=== PATIENT | female | born 1975 | race Caucasian/White ===

== ENCOUNTER → 2017-04-28 | Outpatient (CLI) | payer OTHER ==
--- NOTE | 2017-04-28 09:05 | MM ---
Reason for exam: screening (asymptomatic). Baseline mammogram. History: Patient is nulliparous. Physical Findings: Nurse did not find any significant physical abnormalities on exam. MG 3D Screening Mammo W/Cad Bilateral CC and MLO view(s) were taken. The breast tissue is heterogeneously dense. This may lower the sensitivity of mammography. Finding: There are typically benign vascular, round calcifications in both breasts. There is no discrete abnormality. These results were verbally communicated with the patient and result sheet given to the patient on 04/28/17. ASSESSMENT: Benign, BI-RAD 2 RECOMMENDATION: Routine screening mammogram of both breasts in 1 year.
== END ==
LOC: RADMAMWWP 08:05
PROVIDERS: ATTEND Family Medicine
DX: Z12.31 Encounter for screening mammogram for malignant neoplasm of breast (principal)
CPT/HCPCS: 77063; G0202

== ENCOUNTER → 2018-04-28 | Outpatient (CLI) | payer BC | END | disposition home or self-care (01) | LOC: LABWHC1 08:20 | PROVIDERS: ATTEND Physician Assistant | DX: E89.2 Postprocedural hypoparathyroidism (principal) | CPT/HCPCS: 36415; 82310; 83970 ==

== ENCOUNTER → 2018-09-23 | Outpatient (CLI) | payer BC ==
--- NOTE | 2018-09-26 11:20 | MM ---
Reason for exam: screening (asymptomatic). Last mammogram was performed 1 year and 5 months ago. History: Patient is nulliparous. Physical Findings: A clinical breast exam by your physician is recommended on an annual basis and results should be correlated with mammographic findings. MG Screening Mammo w CAD Bilateral CC and MLO view(s) were taken. Prior study comparison: April 28, 2017, bilateral MG 3d screening mammo w/cad. The breast tissue is heterogeneously dense. This may lower the sensitivity of mammography. There are benign appearing round vascular calcifications bilaterally. There is no discrete abnormality. ASSESSMENT: Benign, BI-RAD 2 RECOMMENDATION: Routine screening mammogram of both breasts in 1 year.
== END | disposition home or self-care (01) ==
LOC: RADMAMWWP 14:44
PROVIDERS: ATTEND Family Medicine
DX: Z12.31 Encounter for screening mammogram for malignant neoplasm of breast (principal)
CPT/HCPCS: 77067

== ENCOUNTER → 2019-04-07 | Outpatient (CLI) | payer BC ==
[2019-04-07 07:36] LABS: Basophils % (A) 1 %; Eosinophils # (A) 0.1 k/uL (0-0.7); Eosinophils % (A) 2 %; HCT 29.9 % (34.0-46.0); HGB 10.1 gm/dL (11.4-16.0); Lymphocytes # (A) 2.3 k/uL (1.0-4.8); Lymphocytes % (A) 37 %; MCH 29.5 pg (25.0-35.0); MCHC 33.7 g/dL (31.0-37.0); MCV 87.5 fL (80.0-100.0); Mean Platelet Volume 7.7; Monocytes # (A) 0.3 k/uL (0-1.0); Monocytes % (A) 5 %; Neutrophils # (A) 3.4 k/uL (1.3-7.7); Neutrophils % (A) 55 %; Platelet Count 187 k/uL (150-450); RBC 3.41 m/uL (3.80-5.40); RDW 13.8 % (11.5-15.5); WBC 6.2 k/uL (3.8-10.6)
[2019-04-07 07:44] LABS: Appearance,Urine Clear (Clear); Bilirubin,Urine Negative (Negative); Blood,Urine Negative (Negative); Color,Urine Colorless; Glucose,Urine (UA) Negative (Negative); Ketones,Urine Negative (Negative); Leukocyte Esterase,Urine Negative (Negative); Nitrite,Urine Negative (Negative); PH, Urine 6.5 (5.0-8.0); Protein,Urine Negative (Negative); Specific Gravity,Urine 1.003 (1.001-1.035); Urobilinogen,Urine <2.0 mg/dL (<2.0)
[2019-04-07 11:54] LABS: African American GFR (CKD) 53.6 (60.0-200.0); Albumin 3.9 g/dL (3.80-4.90); Anion Gap 4.9 mmol/L (4.00-12.00); BUN/Creat Ratio 19.29 Ratio (12.00-20.00); Calcium 8.6 mg/dL (8.7-10.3); Carbon Dioxide 29.1 mmol/L (21.6-31.8); Phosphorus 3.9 mg/dL (2.4-5.1); Potassium 4.1 mmol/L (3.5-5.5)
== END | disposition home or self-care (01) ==
LOC: LABWHC1 07:02
PROVIDERS: ATTEND Internal Medicine
DX: I15.1 Hypertension secondary to other renal disorders (principal); N28.89 Other specified disorders of kidney and ureter; D50.8 Other iron deficiency anemias; R30.0 Dysuria; Z87.440 Personal history of urinary (tract) infections; Z94.0 Kidney transplant status
CPT/HCPCS: 36415; 80069; 81003; 85025; 87086

== ENCOUNTER → 2019-11-14 | Outpatient (CLI) | payer BC ==
--- NOTE | 2019-11-15 11:59 | MM ---
Reason for exam: screening (asymptomatic). Last mammogram was performed 1 year and 2 months ago. History: Patient is nulliparous. Physical Findings: A clinical breast exam by your physician is recommended on an annual basis and results should be correlated with mammographic findings. MG Screening Mammo w CAD Bilateral CC and MLO view(s) were taken. Prior study comparison: September 23, 2018, bilateral MG screening mammo w CAD. April 28, 2017, bilateral MG 3d screening mammo w/cad. The breast tissue is heterogeneously dense. This may lower the sensitivity of mammography. Benign appearing bilateral calcifications. No suspicious abnormality. No significant changes when compared with prior studies. ASSESSMENT: Benign, BI-RAD 2 RECOMMENDATION: Routine screening mammogram of both breasts in 1 year.
== END | disposition home or self-care (01) ==
LOC: RADMAMWWP 06:47
PROVIDERS: ATTEND Family Medicine
DX: Z12.31 Encounter for screening mammogram for malignant neoplasm of breast (principal)
CPT/HCPCS: 77067

== ENCOUNTER → 2020-03-22 | Outpatient (CLI) | payer BC ==
[2020-03-22 08:43] LABS: ALT 10 U/L (4-34); AST 20 U/L (14-36); Albumin 3.8 g/dL (3.5-5.0); Albumin/Globulin Ratio 1.7; Alkaline Phosphatase 41 U/L (38-126); Bilirubin,Unconjugated 0.5 mg/dL (0.0-1.1); Cholesterol 182 mg/dL (<200); Globulin 2.3 g/dL; HDL Cholesterol 38 mg/dL (40-60); LDL Cholesterol,Calculated 98 mg/dL (0-99); Magnesium 1.7 mg/dL (1.6-2.3); Total Bilirubin 0.5 mg/dL (0.2-1.3); Total Protein 6.1 g/dL (6.3-8.2); Triglycerides 230 mg/dL (<150)
[2020-03-22 16:13] LABS: Ferritin 320.7 ng/mL (10.0-291.0)
[2020-03-22 19:03] LABS: Hemoglobin A1C 5.9 % (4.0-6.0)
[2020-03-25 17:30] LABS: % Iron Saturation 15.99 (12.00-45.00)
== END | disposition home or self-care (01) ==
LOC: LABWHC1 07:28
PROVIDERS: ATTEND Internal Medicine
DX: E78.5 Hyperlipidemia, unspecified (principal); D50.8 Other iron deficiency anemias; E21.3 Hyperparathyroidism, unspecified; E55.9 Vitamin D deficiency, unspecified; Z94.0 Kidney transplant status
CPT/HCPCS: 36415; 80061; 80069; 80076; 80197; 82306; 82310; 82728; 83036; 83540; 83550; 83735; 83970; 85025

== ENCOUNTER → 2020-07-24 | Outpatient (CLI) | payer BC ==
[2020-07-24 10:04] LABS: Protein/Creatinine Ratio,Urine 0.216
== END | disposition home or self-care (01) ==
LOC: LABWHC1 07:20
PROVIDERS: ATTEND Internal Medicine
DX: D50.8 Other iron deficiency anemias (principal); E21.3 Hyperparathyroidism, unspecified; E78.5 Hyperlipidemia, unspecified
CPT/HCPCS: 82570; 84156

== ENCOUNTER → 2020-08-01 | Outpatient (CLI) | payer BC ==
[2020-08-01 08:12] LABS: Basophils % (A) 0 %; Eosinophils # (A) 0.1 k/uL (0-0.7); Eosinophils % (A) 1 %; HCT 32.5 % (34.0-46.0); HGB 10.6 gm/dL (11.4-16.0); Lymphocytes # (A) 1.7 k/uL (1.0-4.8); Lymphocytes % (A) 27 %; MCH 28.9 pg (25.0-35.0); MCHC 32.7 g/dL (31.0-37.0); MCV 88.3 fL (80.0-100.0); Mean Platelet Volume 7.3; Monocytes # (A) 0.3 k/uL (0-1.0); Monocytes % (A) 4 %; Neutrophils # (A) 4.2 k/uL (1.3-7.7); Neutrophils % (A) 65 %; Platelet Count 210 k/uL (150-450); RBC 3.68 m/uL (3.80-5.40); WBC 6.4 k/uL (3.8-10.6)
[2020-08-01 08:23] LABS: Appearance,Urine Clear (Clear); Bilirubin,Urine Negative (Negative); Blood,Urine Negative (Negative); Color,Urine Colorless; Glucose,Urine (UA) Negative (Negative); Ketones,Urine Negative (Negative); Leukocyte Esterase,Urine Negative (Negative); Nitrite,Urine Negative (Negative); PH, Urine 5.5 (5.0-8.0); Protein,Urine Negative (Negative); Specific Gravity,Urine 1.007 (1.001-1.035); Urobilinogen,Urine <2.0 mg/dL (<2.0)
[2020-08-01 09:54] LABS: Protein/Creatinine Ratio,Urine 0.249
[2020-08-01 11:41] LABS: African American GFR (CKD) 39.3 (60.0-200.0); Albumin 4.3 g/dL (3.80-4.90); BUN/Creat Ratio 31.11 Ratio (12.00-20.00); Calcium 9.1 mg/dL (8.7-10.3); Non-African American GFR(CKD) 33.9 (60.0-200.0); Phosphorus 4.1 mg/dL (2.4-5.1); Potassium 4.8 mmol/L (3.5-5.5)
== END | disposition home or self-care (01) ==
LOC: LABWHC1 07:28
PROVIDERS: ATTEND Internal Medicine
DX: Z94.0 Kidney transplant status (principal)
CPT/HCPCS: 36415; 80069; 81003; 82570; 84156; 85025

== ENCOUNTER → 2020-09-30 | Outpatient (CLI) | payer BC | END | disposition home or self-care (01) | LOC: LABWHC1 07:14 → EDSTATUS 07:36 | PROVIDERS: ATTEND Internal Medicine | DX: Z94.0 Kidney transplant status (principal); R80.9 Proteinuria, unspecified | CPT/HCPCS: 84166 ==

== ENCOUNTER → 2020-11-08 | Outpatient (CLI) | payer BC | END | disposition home or self-care (01) | LOC: LABWHC1 07:34 | PROVIDERS: ATTEND Internal Medicine | DX: R80.9 Proteinuria, unspecified (principal); Z94.0 Kidney transplant status | CPT/HCPCS: 36415 ==

== ENCOUNTER → 2021-01-24 | Outpatient (CLI) | payer BC ==
--- NOTE | 2021-01-27 14:33 | MM ---
Reason for exam: screening (asymptomatic). Last mammogram was performed 1 year and 2 months ago. History: Patient is nulliparous. Physical Findings: A clinical breast exam by your physician is recommended on an annual basis and results should be correlated with mammographic findings. MG Screening Mammo w CAD Bilateral CC and MLO view(s) were taken. Prior study comparison: November 14, 2019, bilateral MG screening mammo w CAD. September 23, 2018, bilateral MG screening mammo w CAD. The breast tissue is heterogeneously dense. This may lower the sensitivity of mammography. There are benign appearing vascular calcifications bilaterally. There is no discrete abnormality. ASSESSMENT: Benign, BI-RAD 2 RECOMMENDATION: Routine screening mammogram of both breasts in 1 year.
== END | disposition home or self-care (01) ==
LOC: RADMAMWWP 07:24
PROVIDERS: ATTEND Family Medicine
DX: Z12.31 Encounter for screening mammogram for malignant neoplasm of breast (principal)
CPT/HCPCS: 77067

== ENCOUNTER → 2021-01-29 | Outpatient (CLI) | payer BC ==
[2021-01-29 15:51] LABS: Basophils % (A) 0 %; Eosinophils % (A) 0 %; HCT 29.7 % (34.0-46.0); HGB 9.8 gm/dL (11.4-16.0); Lymphocytes # (A) 1.2 k/uL (1.0-4.8); Lymphocytes % (A) 14 %; MCH 28.8 pg (25.0-35.0); MCV 87.3 fL (80.0-100.0); Mean Platelet Volume 7.9; Monocytes # (A) 0.3 k/uL (0-1.0); Monocytes % (A) 4 %; Neutrophils # (A) 7.1 k/uL (1.3-7.7); Neutrophils % (A) 81 %; Platelet Count 198 k/uL (150-450); RDW 13.3 % (11.5-15.5); WBC 8.7 k/uL (3.8-10.6)
== END | disposition home or self-care (01) ==
LOC: LABPAT 14:22
PROVIDERS: ATTEND Obstetrics & Gynecology
DX: Z01.812 Encounter for preprocedural laboratory examination (principal); N84.0 Polyp of corpus uteri; N92.0 Excessive and frequent menstruation with regular cycle; I10 Essential (primary) hypertension; R00.1 Bradycardia, unspecified
CPT/HCPCS: 36415; 85025; 93005

== ENCOUNTER 2021-02-18 08:48 | Day surgery (SDC) | payer BC ==
[2021-02-13 12:56] VITALS: BMI 33.9
[~2021-02-18 08:48] MED LIST: DEXAMETHASONE SOD PHOSPHATE 4 MG/ML 1 ML VIAL IV ONE; HYDROmorphone 0.5 MG/0.5 ML SYRINGE IVP PRN; LACTATED RINGERS 1,000 ML IV SCH; MIDAZOLAM 2 MG/2 ML VIAL IV PRN; ONDANSETRON 4 MG/2 ML VIAL IVP ONE; Pre Op ABX Message 1 EACH MISC MISCELLANE ONE; SCOPOLAMINE 1.5MG/72HR PATCH TRANSDERM ONE
[2021-02-18] MEDS ORDERED: SODIUM CHLORIDE 0.9% 1,000 ML IV ONE (09:51)
[2021-02-18 09:54] LABS: Glucose,Whole Blood 93 mg/dL (75-99)
[2021-02-18] MEDS ORDERED: KETOROLAC 15 MG/ML 1 ML VIAL ONE (10:50)
[2021-02-18] MEDS ORDERED: LIDOCAINE 1% INJ 10MG/ML (20 ML MDV) ONE (10:50)
[2021-02-18] MEDS ORDERED: PROPOFOL 10 MG/ML 20 ML VIAL IV ONE (10:50)
[2021-02-18] MEDS ORDERED: MIDAZOLAM 2 MG/2 ML VIAL ONE (10:50)
[2021-02-18] MEDS ORDERED: fentaNYL (PF) 50 MCG/ML 2 ML AMP ONE (10:50)
--- NOTE | 2021-02-18 11:26 | P.OP ---
Date of Procedure: 02/18/21 Preoperative Diagnosis: Menorrhagia, hypermenorrhea, endometrial polyps Postoperative Diagnosis: Same Procedure(s) Performed: Hysteroscopy, D&C, polypectomies Anesthesia: SHAWNA Surgeon: Gwen Newman Estimated Blood Loss (ml): 20 IV fluids (ml): 100 Urine output (ml): 200 Pathology: other (Endometrial curettings and polyps) Condition: stable Disposition: PACU Operative Findings: Multiple endometrial polyps and shaggy proliferative type endometrium Description of Procedure: Patient is brought to the operating suite where a general anesthetic is administered without difficulty. She's placed in the dorsal lithotomy position. The appropriate timeout is performed to assure proper patient and procedural identification. HCG is negative. The cervix, vagina, perineal bodies are all prepped and draped in usual sterile fashion. Examination under anesthesia reveals an anteverted uterus with negative adnexa bilaterally. Uterus is slightly enlarged clinically. The bladder is drained for approximate 200 mL of clear yellow urine. Weighted speculum was placed into the vagina and the anterior lip of the cervix is gently grasped with a double-tooth tenaculum. Uterus sounds to a depth of 13 cm in the anteverted position. Hanks dilators are used to dilate the cervix sequentially. Hysteroscope was then placed and the cavity is infused with sterile saline. The tissue appears quite shaggy and redundant with small endometrial polyps noted. No septa or defects. Hysteroscope was removed. Sharp medium curette is used and the cavity is thoroughly curettaged in all quadrants. Polyp forceps are used and some residual tissue is procured and sent with the specimen. Hysteroscope was once again placed and the cavity is noted to be clear. Instrumentation is removed from the vagina. All sponge needle and enhancement counts are correct. Patient is brought back to recovery room in good condition with a pulse of 66, blood pressure 85/40, 100% O2 saturation. She is given 15 mg of Toradol prior to leaving the operative suite.
[2021-02-18 11:27] VITALS: TEMP 97.1
[2021-02-18 11:36] VITALS: RESP 16
[2021-02-18 12:16] VITALS: BP 106/75; PULSE 70
== END 2021-02-18 12:46 | disposition home or self-care (01) ==
LOC: OR 08:48
PROVIDERS: ATTEND Obstetrics & Gynecology
DX: N84.0 Polyp of corpus uteri (principal); N92.0 Excessive and frequent menstruation with regular cycle; D64.9 Anemia, unspecified; I10 Essential (primary) hypertension; Z86.73 Personal history of transient ischemic attack (TIA), and cerebral infarction without residual deficits; N28.9 Disorder of kidney and ureter, unspecified; Z94.0 Kidney transplant status; E89.2 Postprocedural hypoparathyroidism; Z98.890 Other specified postprocedural states; Z82.49 Family history of ischemic heart disease and other diseases of the circulatory system; Z80.0 Family history of malignant neoplasm of digestive organs; Z83.79 Family history of other diseases of the digestive system; Z79.899 Other long term (current) drug therapy; Z91.041 Radiographic dye allergy status
CPT/HCPCS: 81025; 88305; 58558; J2250; J2405; J2001; J3010; J1885; J2704

== ENCOUNTER → 2021-03-20 | Outpatient (CLI) | payer BC ==
[2021-03-20 07:59] LABS: Appearance,Urine Clear (Clear); Bilirubin,Urine Negative (Negative); Blood,Urine Negative (Negative); Color,Urine Light Yellow; Glucose,Urine (UA) Negative (Negative); Ketones,Urine Negative (Negative); Leukocyte Esterase,Urine Negative (Negative); Nitrite,Urine Negative (Negative); PH, Urine 5.5 (5.0-8.0); Protein,Urine Negative (Negative); Specific Gravity,Urine 1.009 (1.001-1.035); Urobilinogen,Urine <2.0 mg/dL (<2.0)
[2021-03-20 09:35] LABS: Creatinine,Urine Random 69.8 mg/dL; Protein/Creatinine Ratio,Urine 0.143
[2021-03-20 11:39] LABS: Basophils # (A) 0.05 X 10*3/uL (0.00-0.10); Basophils % (A) 0.7 %; Eosinophils # (A) 0.13 X 10*3/uL (0.04-0.35); Eosinophils % (A) 1.7 %; HCT 31.8 % (37.2-46.3); HGB 9.9 g/dL (12.0-15.0); Lymphocytes # (A) 2.34 X 10*3/uL (0.90-5.00); Lymphocytes % (A) 30.6 %; MCH 28.4 pg (27.0-32.0); MCHC 31.1 g/dL (32.0-37.0); MCV 91.4 fL (80.0-97.0); Mean Platelet Volume 11.2 fL (9.5-12.2); Monocytes % (A) 7.8 %; Neutrophils % (A) 58.8 %; Platelet Count 207 X 10*3/uL (140-440); RBC 3.48 X 10*6/uL (4.10-5.20); RDW 12.9 % (11.5-14.5); WBC 7.65 X 10*3/uL (4.50-10.00)
[2021-03-20 14:46] LABS: % Iron Saturation 20.33 (12.00-45.00); ALT 11 U/L (8-44); AST 17 U/L (13-35); African American GFR (CKD) 34.3 (60.0-200.0); Albumin/Globulin Ratio 2.26; Alkaline Phosphatase 43 U/L (41-126); Bilirubin, Conjugated <0.20 mg/dL (0.20-0.40); Calcium 9.2 mg/dL (8.7-10.3); Carbon Dioxide 20.3 mmol/L (21.6-31.8); Chloride 108 mmol/L (96-109); Glucose 88 mg/dL (70-110); Iron 61 ug/dL (50-170); Magnesium 1.6 mg/dL (1.5-2.4); Non-African American GFR(CKD) 29.6 (60.0-200.0); Phosphorus 4.2 mg/dL (2.4-5.1); Potassium 4.5 mmol/L (3.5-5.5); Sodium 138 mmol/L (135-145); Total Bilirubin 0.4 mg/dL (0.2-1.2); Total Iron Binding Capacity 300 ug/dL (228-460); Total Protein 6.2 g/dL (6.2-8.2)
[2021-03-20 14:54] LABS: Ferritin 256.3 ng/mL (10.0-291.0)
== END | disposition home or self-care (01) ==
LOC: LABWHC1 07:19
PROVIDERS: ATTEND Internal Medicine
DX: D84.9 Immunodeficiency, unspecified (principal); E21.3 Hyperparathyroidism, unspecified; D64.9 Anemia, unspecified
CPT/HCPCS: 36415; 80069; 80076; 81003; 82306; 82570; 82728; 83540; 83550; 83735; 83970; 84156; 85025

== ENCOUNTER → 2021-06-27 | Outpatient (CLI) | payer BC ==
[2021-06-27 10:42] LABS: Basophils # (A) 0.03 X 10*3/uL (0.00-0.10); Basophils % (A) 0.4 %; Eosinophils % (A) 1.2 %; HCT 30.3 % (37.2-46.3); HGB 9.5 g/dL (12.0-15.0); Lymphocytes # (A) 2.14 X 10*3/uL (0.90-5.00); Lymphocytes % (A) 25.6 %; MCH 27.9 pg (27.0-32.0); MCHC 31.4 g/dL (32.0-37.0); MCV 89.1 fL (80.0-97.0); Mean Platelet Volume 10.5 fL (9.5-12.2); Monocytes # (A) 0.57 X 10*3/uL (0.20-1.00); Monocytes % (A) 6.8 %; Neutrophils # (A) 5.48 X 10*3/uL (1.80-7.70); Neutrophils % (A) 65.5 %; Platelet Count 217 X 10*3/uL (140-440); RDW 12.5 % (11.5-14.5); WBC 8.36 X 10*3/uL (4.50-10.00)
[2021-06-27 23:43] LABS: African American GFR (CKD) 30.6 (60.0-200.0); Albumin 4.5 g/dL (3.80-4.90); BUN/Creat Ratio 17.27 Ratio (12.00-20.00); Calcium 8.8 mg/dL (8.7-10.3); Chol/HDL Ratio 3.76; LDL Cholesterol,Calculated 90.4 mg/dL (0.0-131.0); Non-African American GFR(CKD) 26.4 (60.0-200.0); Phosphorus 3.6 mg/dL (2.4-5.1); Potassium 4.2 mmol/L (3.5-5.5); VLDL Calculation 25.6 mg/dL (5.00-40.00)
== END | disposition home or self-care (01) ==
LOC: LABWHC1 07:19
PROVIDERS: ATTEND Internal Medicine
DX: D84.9 Immunodeficiency, unspecified (principal); I15.1 Hypertension secondary to other renal disorders; N28.89 Other specified disorders of kidney and ureter; E78.5 Hyperlipidemia, unspecified; Z94.0 Kidney transplant status
CPT/HCPCS: 36415; 80061; 80069; 85025

== ENCOUNTER → 2021-07-30 | Outpatient (CLI) | payer BC ==
[2021-07-30 11:42] LABS: Basophils # (A) 0.04 X 10*3/uL (0.00-0.10); Basophils % (A) 0.5 %; Eosinophils # (A) 0.06 X 10*3/uL (0.04-0.35); Eosinophils % (A) 0.7 %; HCT 30.7 % (37.2-46.3); HGB 9.6 g/dL (12.0-15.0); Lymphocytes # (A) 2.24 X 10*3/uL (0.90-5.00); Lymphocytes % (A) 27.1 %; MCH 28.2 pg (27.0-32.0); MCHC 31.3 g/dL (32.0-37.0); MCV 90.3 fL (80.0-97.0); Mean Platelet Volume 10.8 fL (9.5-12.2); Monocytes # (A) 0.55 X 10*3/uL (0.20-1.00); Monocytes % (A) 6.7 %; Neutrophils # (A) 5.33 X 10*3/uL (1.80-7.70); Neutrophils % (A) 64.5 %; Platelet Count 180 X 10*3/uL (140-440); RDW 12.6 % (11.5-14.5); Reticulocyte % 1.67 % (0.10-1.80); WBC 8.26 X 10*3/uL (4.50-10.00)
[2021-07-30 16:25] LABS: % Iron Saturation 28.27 (12.00-45.00); Albumin 4.2 g/dL (3.8-4.9); Anion Gap 15.7 mmol/L (4.00-12.00); BUN/Creat Ratio 15.69 Ratio (12.00-20.00); Blood Urea Nitrogen 29.5 mg/dL (9.0-27.0); Calcium 8.3 mg/dL (8.7-10.3); Chol/HDL Ratio 4.41 Ratio; Folate, Serum 13.9 ng/mL (4.40-31.00); Non-African American GFR(CKD) 31.9 (60.0-200.0); Phosphorus 3.8 mg/dL (2.4-5.1); Potassium 4.2 mmol/L (3.5-5.5)
== END | disposition home or self-care (01) ==
LOC: LABWHC1 07:21
PROVIDERS: ATTEND Internal Medicine
DX: D64.9 Anemia, unspecified (principal); D84.9 Immunodeficiency, unspecified; Z94.0 Kidney transplant status
CPT/HCPCS: 36415; 80061; 80069; 82607; 82668; 82728; 82746; 83010; 83540; 83550; 83615; 85025; 85045

== ENCOUNTER → 2021-09-17 | Outpatient (CLI) | payer BC ==
[2021-09-17 09:18] LABS: Appearance,Urine Cloudy (Clear); Bilirubin,Urine Negative (Negative); Blood,Urine Negative (Negative); Color,Urine Light Yellow; Glucose,Urine (UA) Negative (Negative); Hyaline Casts,Urine 1 /lpf (0-2); Ketones,Urine Negative (Negative); Leukocyte Esterase,Urine Small (Negative); Mucus,Urine Rare /hpf; Nitrite,Urine Negative (Negative); PH, Urine 5.5 (5.0-8.0); Protein,Urine Negative (Negative); RBC,Urine 1 /hpf (0-5); Specific Gravity,Urine 1.011 (1.001-1.035); Squamous Epithelial Cell,Urine 11 /hpf (0-4); Urobilinogen,Urine <2.0 mg/dL (<2.0); WBC,Urine 3 /hpf (0-5)
[2021-09-17 10:28] LABS: Creatinine,Urine Random 91.3 mg/dL; Protein/Creatinine Ratio,Urine 0.142
[2021-09-17 11:02] LABS: Basophils # (A) 0.04 X 10*3/uL (0.00-0.10); Basophils % (A) 0.6 %; Eosinophils # (A) 0.07 X 10*3/uL (0.04-0.35); HCT 32.5 % (37.2-46.3); HGB 10.4 g/dL (12.0-15.0); Lymphocytes # (A) 2.03 X 10*3/uL (0.90-5.00); MCH 28.9 pg (27.0-32.0); MCV 90.3 fL (80.0-97.0); Mean Platelet Volume 10.4 fL (9.5-12.2); Monocytes # (A) 0.48 X 10*3/uL (0.20-1.00); Monocytes % (A) 7.1 %; Neutrophils # (A) 4.12 X 10*3/uL (1.80-7.70); Neutrophils % (A) 60.9 %; Platelet Count 206 X 10*3/uL (140-440); RDW 12.7 % (11.5-14.5); Reticulocyte % 1.32 % (0.10-1.80); WBC 6.77 X 10*3/uL (4.50-10.00)
[2021-09-17 13:09] LABS: Total Protein 6.4 g/dL (6.2-8.2)
[2021-09-17 13:14] LABS: % Iron Saturation 25.85 (12.00-45.00); African American GFR (CKD) 41.8 (60.0-200.0); Albumin 4.4 g/dL (3.8-4.9); BUN/Creat Ratio 18.94 Ratio (12.00-20.00); Blood Urea Nitrogen 32.2 mg/dL (9.0-27.0); Calcium 8.8 mg/dL (8.7-10.3); Carbon Dioxide 21.2 mmol/L (20.0-27.5); Chloride 102 mmol/L (96-109); Chol/HDL Ratio 5.34 Ratio; Glucose 86 mg/dL (70-110); Iron 74 ug/dL (50-170); LDH 169 U/L (120-246); LDL Cholesterol,Calculated 136.4 mg/dL (0.0-131.0); Magnesium 1.7 mg/dL (1.5-2.4); Phosphorus 3.7 mg/dL (2.4-5.1); Sodium 141 mmol/L (135-145); Total Iron Binding Capacity 287 ug/dL (228-460)
[2021-09-17 13:28] LABS: ALT 15 U/L (8-44); AST 15 U/L (13-35); Alkaline Phosphatase 53 U/L (41-126); Bilirubin, Conjugated <0.20 mg/dL (0.20-0.40)
== END | disposition home or self-care (01) ==
LOC: LABWHC1 07:27
PROVIDERS: ATTEND Internal Medicine
DX: Z94.0 Kidney transplant status (principal); D84.9 Immunodeficiency, unspecified; E78.5 Hyperlipidemia, unspecified; D64.9 Anemia, unspecified
CPT/HCPCS: 36415; 80061; 80069; 80076; 81001; 82570; 82607; 82668; 82728; 82746; 83010; 83540; 83550; 83615; 83735; 84156; 85025; 85045

== ENCOUNTER → 2022-03-04 | Outpatient (CLI) | payer BC ==
[2022-03-04 09:05] LABS: Appearance,Urine Clear (Clear); Bacteria,Urine Rare /hpf; Bilirubin,Urine Negative (Negative); Blood,Urine Negative (Negative); Color,Urine Light Yellow; Glucose,Urine (UA) Negative (Negative); Ketones,Urine Negative (Negative); Leukocyte Esterase,Urine Trace (Negative); Nitrite,Urine Negative (Negative); PH, Urine 5.5 (5.0-8.0); Protein,Urine Negative (Negative); RBC,Urine 1 /hpf (0-5); Specific Gravity,Urine 1.006 (1.001-1.035); Squamous Epithelial Cell,Urine 3 /hpf (0-4); Urobilinogen,Urine <2.0 mg/dL (<2.0); WBC,Urine 3 /hpf (0-5)
[2022-03-04 10:44] LABS: Basophils # (A) 0.01 X 10*3/uL (0.00-0.10); Basophils % (A) 0.2 %; Eosinophils # (A) 0.03 X 10*3/uL (0.04-0.35); Eosinophils % (A) 0.7 %; HCT 31.4 % (37.2-46.3); HGB 9.8 g/dL (12.0-15.0); Immature Grans, Automated 0.2 %; Lymphocytes # (A) 1.79 X 10*3/uL (0.90-5.00); Lymphocytes % (A) 44.3 %; MCH 28.2 pg (27.0-32.0); MCHC 31.2 g/dL (32.0-37.0); MCV 90.5 fL (80.0-97.0); Mean Platelet Volume 10.7 fL (9.5-12.2); Monocytes # (A) 0.51 X 10*3/uL (0.20-1.00); Monocytes % (A) 12.6 %; NRBC Per 100 WBC 0 /100 WBCS (0.0-0.0); Neutrophils # (A) 1.69 X 10*3/uL (1.80-7.70); Platelet Count 186 X 10*3/uL (140-440); RBC 3.47 X 10*6/uL (4.10-5.20); RDW 12.5 % (11.5-14.5); WBC 4.04 X 10*3/uL (4.50-10.00)
[2022-03-04 10:53] LABS: Total Protein 6.2 g/dL (6.2-8.2)
[2022-03-04 10:58] LABS: ALT 14 U/L (8-44); AST 20 U/L (13-35); Alkaline Phosphatase 35 U/L (41-126); Bilirubin, Conjugated <0.20 mg/dL (0.20-0.40)
[2022-03-04 11:16] LABS: African American GFR (CKD) 30.4 (60.0-200.0); Albumin 4.3 g/dL (3.8-4.9); Albumin/Globulin Ratio 2.263; BUN/Creat Ratio 14.27 Ratio (12.00-20.00); Blood Urea Nitrogen 31.4 mg/dL (9.0-27.0); Calcium 8.5 mg/dL (8.7-10.3); Carbon Dioxide 23.6 mmol/L (20.0-27.5); Chloride 98 mmol/L (96-109); Globulin 1.9; Glucose 90 mg/dL (70-110); Magnesium 1.7 mg/dL (1.5-2.4); Non-African American GFR(CKD) 26.2 (60.0-200.0); Phosphorus 3.8 mg/dL (2.4-5.1); Potassium 4.5 mmol/L (3.5-5.5); Sodium 133 mmol/L (135-145)
[2022-03-04 11:17] LABS: Chol/HDL Ratio 4.94 Ratio; LDL Cholesterol,Calculated 90.6 mg/dL (0.0-131.0)
[2022-03-04 11:34] LABS: Creatinine,Urine Random 51.7 mg/dL; Protein/Creatinine Ratio,Urine 0.232
== END | disposition home or self-care (01) ==
LOC: LABWHC1 07:05
PROVIDERS: ATTEND Internal Medicine
DX: Z94.0 Kidney transplant status (principal); E78.5 Hyperlipidemia, unspecified; E21.3 Hyperparathyroidism, unspecified
CPT/HCPCS: 36415; 80061; 80069; 80076; 81001; 82306; 82570; 83036; 83735; 83970; 84156; 85025

== ENCOUNTER → 2022-03-11 | Outpatient (CLI) | payer BC ==
[2022-03-11 14:51] LABS: % Iron Saturation 35.43 (12.00-45.00); ALT 36 U/L (8-44); AST 24 U/L (13-35); African American GFR (CKD) 30.4 (60.0-200.0); Albumin 4.4 g/dL (3.8-4.9); Albumin/Globulin Ratio 2.55 (1.60-3.17); Alkaline Phosphatase 39 U/L (41-126); BUN/Creat Ratio 19.23 Ratio (12.00-20.00); Blood Urea Nitrogen 42.3 mg/dL (9.0-27.0); Calcium 8.8 mg/dL (8.7-10.3); Carbon Dioxide 23.5 mmol/L (20.0-27.5); Chloride 105 mmol/L (96-109); Chol/HDL Ratio 5.08 Ratio; Globulin 1.7 g/dL (1.6-3.3); Glucose 93 mg/dL (70-110); Iron 99 ug/dL (50-170); LDL Cholesterol,Calculated 112.8 mg/dL (0.0-131.0); Non-African American GFR(CKD) 26.2 (60.0-200.0); Potassium 4.3 mmol/L (3.5-5.5); Sodium 140 mmol/L (135-145); Total Iron Binding Capacity 280 ug/dL (228-460); Total Protein 6.1 g/dL (6.2-8.2)
== END | disposition home or self-care (01) ==
LOC: LABWHC1 07:09
PROVIDERS: ATTEND Internal Medicine
DX: Z94.0 Kidney transplant status (principal); E78.5 Hyperlipidemia, unspecified; D64.9 Anemia, unspecified
CPT/HCPCS: 36415; 80053; 80061; 82728; 83540; 83550

== ENCOUNTER → 2024-12-21 | Outpatient (CLI) | payer BC ==
[2024-12-21 10:18] LABS: Basophils # (A) 0.03 X 10*3/uL (0.00-0.10); Basophils % (A) 0.4 %; Eosinophils # (A) 0.09 X 10*3/uL (0.04-0.35); Eosinophils % (A) 1.1 %; HCT 34.5 % (37.2-46.3); HGB 11.1 g/dL (12.0-15.0); Lymphocytes # (A) 2.99 X 10*3/uL (0.90-5.00); Lymphocytes % (A) 35.1 %; MCH 28.8 pg (27.0-32.0); MCHC 32.2 g/dL (32.0-37.0); MCV 89.4 FL (80.0-97.0); Mean Platelet Volume 10.2 FL (9.5-12.2); Monocytes # (A) 0.59 X 10*3/uL (0.20-1.00); Monocytes % (A) 6.9 %; NRBC Per 100 WBC 0 X 10*3/uL (0.00-0.01); Neutrophils # (A) 4.79 X 10*3/uL (1.80-7.70); Platelet Count 229 X 10*3/uL (140-440); RBC 3.86 X 10*6/uL (4.10-5.20); RDW 12.8 % (11.5-14.5); WBC 8.53 X 10*3/uL (4.50-10.00)
[2024-12-21 10:25] LABS: Albumin 4.3 g/dL (3.8-4.9); Blood Urea Nitrogen 39.8 mg/dL (9.0-27.0); Calcium 9.8 mg/dL (8.7-10.3); Carbon Dioxide 25.8 mmol/L (21.6-31.8); Chloride 101 mmol/L (96-109); Glucose 92 mg/dL (70-110); Phosphorus 4.4 mg/dL (2.4-5.1); Potassium 4.5 mmol/L (3.5-5.5); Sodium 139 mmol/L (135-145)
== END | disposition home or self-care (01) ==
LOC: LABWHC1 07:15
PROVIDERS: ATTEND Internal Medicine
DX: Z94.0 Kidney transplant status (principal)
CPT/HCPCS: 36415; 80069; 85025

== ENCOUNTER → 2025-02-20 | Outpatient (CLI) | payer BC ==
[2025-02-20 09:14] LABS: Appearance,Urine Clear (Clear); Bilirubin,Urine Negative (Negative); Blood,Urine Negative (Negative); Color,Urine Colorless; Glucose,Urine (UA) Negative (Negative); Ketones,Urine Negative (Negative); Leukocyte Esterase,Urine Negative (Negative); Nitrite,Urine Negative (Negative); PH, Urine 5.5 (5.0-8.0); Protein,Urine Negative (Negative); Urobilinogen,Urine <2.0 mg/dL (<2.0)
[2025-02-20 10:26] LABS: Basophils # (A) 0.05 X 10*3/uL (0.00-0.10); Basophils % (A) 0.6 %; Eosinophils # (A) 0.12 X 10*3/uL (0.04-0.35); Eosinophils % (A) 1.4 %; HCT 35.4 % (37.2-46.3); HGB 11.1 g/dL (12.0-15.0); Lymphocytes # (A) 2.62 X 10*3/uL (0.90-5.00); Lymphocytes % (A) 29.9 %; MCH 28.5 pg (27.0-32.0); MCHC 31.4 g/dL (32.0-37.0); Mean Platelet Volume 10.2 FL (9.5-12.2); Monocytes # (A) 0.55 X 10*3/uL (0.20-1.00); Monocytes % (A) 6.3 %; NRBC Per 100 WBC 0 X 10*3/uL (0.00-0.01); Neutrophils % (A) 61.5 %; Platelet Count 235 X 10*3/uL (140-440); RBC 3.89 X 10*6/uL (4.10-5.20); WBC 8.77 X 10*3/uL (4.50-10.00)
[2025-02-20 10:47] LABS: % Iron Saturation 27.44 (12.00-45.00); ALT 12 U/L (8-44); AST 16 U/L (13-35); Albumin 4.3 g/dL (3.8-4.9); Albumin/Globulin Ratio 1.87 Ratio (1.60-3.17); Alkaline Phosphatase 57 U/L (41-126); BUN/Creat Ratio 22.44 Ratio (12.00-20.00); Bilirubin, Conjugated <0.20 mg/dL (0.20-0.40); Bilirubin,Unconjugated >0.10 mg/dL (0.20-1.00); Blood Urea Nitrogen 40.4 mg/dL (9.0-27.0); Carbon Dioxide 22.5 mmol/L (21.6-31.8); Chloride 107 mmol/L (96-109); Chol/HDL Ratio 3.84 Ratio; Globulin 2.3 g/dL (1.6-3.3); Glucose 96 mg/dL (70-110); Iron 76 UG/DL (50-170); LDL Cholesterol,Calculated 61.8 mg/dL (0.0-131.0); Magnesium 1.6 mg/dL (1.5-2.4); Phosphorus 4.7 mg/dL (2.4-5.1); Potassium 4.3 mmol/L (3.5-5.5); Sodium 144 mmol/L (135-145); Total Bilirubin 0.3 mg/dL (0.3-1.2); Total Iron Binding Capacity 277 UG/DL (228-460); Total Protein 6.6 g/dL (6.2-8.2)
[2025-02-20 11:54] LABS: Creatinine,Urine Random 87.8 mg/dL; Protein/Creatinine Ratio,Urine 0.148
[2025-02-20 18:11] LABS: Urine Creatinine 90.7 mg/dL (28.0-217.0)
== END | disposition home or self-care (01) ==
LOC: LABWHC1 07:12
PROVIDERS: ATTEND Internal Medicine
DX: D50.8 Other iron deficiency anemias (principal); D84.9 Immunodeficiency, unspecified; N39.0 Urinary tract infection, site not specified; E78.5 Hyperlipidemia, unspecified; R31.9 Hematuria, unspecified; Z94.0 Kidney transplant status
CPT/HCPCS: 36415; 80061; 80069; 80076; 81003; 82043; 82570; 82728; 83036; 83540; 83550; 83735; 84156; 85025